=== PATIENT | male | born 1960 | race Caucasian/White ===

== ENCOUNTER → 2016-07-20 | Outpatient (CLI) | payer BC ==
[~2016-07-20] MED LIST: MULT-506 PO
--- NOTE | 2016-07-20 08:52 | DIAGNOSTIC IMAGING REPORT ---
LEFT LOWER QUADRANT ABDOMINAL ULTRASOUND CLINICAL HISTORY: Left lower quadrant pain COMPARISON STUDY: No previous studies for comparison. FINDINGS: Ultrasonographic evaluation the left lower quadrant was performed and construction representative images are submitted for interpretation. No abnormal masses or fluid collections are visualized. If symptoms persist, CT scanning might be considered in follow-up. IMPRESSION: No left lower quadrant ultrasonographic abnormalities identified Electronically signed by: Mohinder Cuevas M.D. 07/20/2016 8:50 AM Dictated Date/Time: 07/20/2016 8:49 AM
== END | disposition home or self-care (01) ==
LOC: C.ULTR 08:11
PROVIDERS: ATTEND Registered Nurse
DX: R14.0 Abdominal distension (gaseous) (principal); R10.32 Left lower quadrant pain

== ENCOUNTER → 2016-07-26 | Outpatient (CLI) | payer BC ==
[~2016-07-26] MED LIST changes: +OPTIRAY 320 IV PRN
--- NOTE | 2016-07-26 14:06 | DIAGNOSTIC IMAGING REPORT ---
ABDOMEN AND PELVIS CT WITH IV AND ORAL CONTRAST CT DOSE: 357.56 mGycm HISTORY: Pain. Nausea. R10.32 Left lower quadrant painR14.0 [id number] TECHNIQUE: Multiaxial CT images of the abdomen and pelvis were performed following the use of intravenous and oral contrast. COMPARISON STUDY: None. FINDINGS: Lung bases are clear. Several small hypodensities are present within the liver consistent with small cysts on a statistical basis. Spleen is uniform as is the pancreas. Kidneys are negative for hydronephrosis. Small nonobstructing calcifications are identified bilaterally. Mild hyperplastic change of the left and to lesser extent right adrenal. Overall is nonobstructive. There is increased fecal load within the rectosigmoid with a mild fecal impaction. There are no obstructive characteristics. IMPRESSION: 1. Increased fecal load within the rectosigmoid with at least a mild to moderate fecal impaction. 2. Several small hepatic cysts. 3. Small nonobstructing renal calcifications bilaterally. 4. Study is otherwise negative Electronically signed by: Yadiel Melendez M.D. 07/26/2016 2:05 PM Dictated Date/Time: 07/26/2016 2:01 PM
== END | disposition home or self-care (01) ==
LOC: C.CTS 12:35
PROVIDERS: ATTEND Registered Nurse
DX: R14.0 Abdominal distension (gaseous) (principal); R10.32 Left lower quadrant pain

== ENCOUNTER → 2017-05-07 | Outpatient (CLI) | payer BC ==
[~2017-05-07] MED LIST changes: -OPTIRAY 320 IV PRN
[2017-05-07 11:10] LABS: BASO ABS # 0.06 K/uL (0-0.2); COMPLETE YES; EOS % 1.3 %; IG% 0.2 %; LYMPH % 29.5 %; LYMPH ABS # 1.82 K/uL (1.2-3.4); MEAN CELL VOLUME 89.1 fL (80-100); MEAN CORPUSCULAR HEMOGLOBIN 30.3 pg (25-34); MEAN PLATELET VOLUME 10.4 fL (7.4-10.4); MONO % 9.3 %; NEUT % 58.7 %; PLATELET COUNT 299 K/uL (130-400); RED BLOOD COUNT 5.05 M/uL (4.7-6.1); WHITE BLOOD COUNT 6.16 K/uL (4.8-10.8)
[2017-05-07 11:27] LABS: ALB/GLOB RATIO 0.9 (0.9-2); ALKALINE PHOSPHATASE 60 U/L (45-117); ALT/SGPT 19 U/L (12-78); AST/SGOT 15 U/L (15-37); BLOOD UREA NITROGEN 21 mg/dl (7-18); BUN/CREATININE RATIO 14.9 (10-20); CALCIUM 9.1 mg/dl (8.5-10.1); CARBON DIOXIDE 28 mmol/L (21-32); CHLORIDE 103 mmol/L (98-107); CHOLESTEROL 240 mg/dl (0-200); CREATININE 1.39 mg/dl (0.60-1.40); GLUCOSE 94 mg/dl (70-99); POTASSIUM 4.2 mmol/L (3.5-5.1); SODIUM 137 mmol/L (136-145)
[2017-05-07 11:33] LABS: CHOLESTEROL/HDL RATIO 3.2; HDL CHOLESTEROL 74 mg/dl; LDL CHOLESTEROL CALCULATED 148 mg/dl; TRIGLYCERIDES 91 mg/dl (0-150); VERY LOW DENSITY LIPOPROT CALC 18 mg/dl
== END | disposition home or self-care (01) ==
LOC: C.LABBC 09:01
PROVIDERS: ATTEND Internal Medicine
DX: Z00.00 Encounter for general adult medical examination without abnormal findings (principal); E78.5 Hyperlipidemia, unspecified; N18.1 Chronic kidney disease, stage 1; Z12.5 Encounter for screening for malignant neoplasm of prostate; K63.5 Polyp of colon; Z11.59 Encounter for screening for other viral diseases